=== PATIENT | female | born 1930 | race Caucasian/White ===

== ENCOUNTER 2016-07-06 17:09 | Inpatient (IN) ==
[2016-07-06 17:38] LABS: Basophils # 0.1 K/mcL (0.0-0.2); Basophils % 0.4 %; Eosinophils # 0.3 K/mcL (0.0-0.6); Eosinophils % 2.1 %; Hemoglobin 10.1 g/dL (11.5-15.4); Immature Granulocytes % 0.4 % (0-4); Lymphocytes # 2.6 K/mcL (0.6-4.6); Lymphocytes % 18.9 %; Mean Corpuscular HGB Conc 30.6 g/dL (31.6-35.5); Mean Corpuscular Hemoglobin 26.6 pg (28.0-33.3); Mean Corpuscular Volume 87.1 fL (83.0-100.0); Mean Platelet Volume 11.6 fL (9.4-12.4); Monocytes # 1.2 K/mcL (0.0-1.3); Monocytes % 8.3 %; Neutrophils # 9.7 K/mcL (1.6-8.9); Platelet Count 384 K/mcL (140-400); Red Blood Count 3.79 M/mcL (3.82-4.97); Red Cell Distribution Width 15.2 % (11.5-14.5); Segmented Neutrophils % 69.9 %
--- NOTE | 2016-07-06 17:42 | Emergency Department Note ---
Disposition Clinical Impression: Congestive heart failure Qualifiers: Congestive heart failure type: unspecified congestive heart failure type Congestive heart failure chronicity: unspecified congestive heart failure chronicity Qualified Code(s): I50.9 - Heart failure, unspecified Disposition: Admitted As Inpatient Condition: Fair SOB HPI - General Chief Complaint: ED Shortness of Breath/Dyspnea Stated Complaint: TERESA Time Seen by Provider: 07/06/16 17:14 Source: patient Limitations: no limitations Nursing Notes Reviewed: Yes Vital Signs Reviewed: Yes - History of Present Illness Patient is an 86-year-old female with a history of congestive heart failure, heart disease, and pulmonology issues Pt Subjective Complaint: shortness of breath Onset (ago): day(s) - Related Data Home Medications Medication Instructions Recorded Confirmed Amlodipine [Norvasc] 10 mg PO QAM 08/11/15 04/10/16 B2/Vits A,C,E/Lut/Zeaxanth/Min 1 each PO HS 08/11/15 04/10/16 [Icaps Tablet] Cholecalciferol (Vitamin D3) 5,000 unit PO HS 08/11/15 04/10/16 [Vitamin D3] ClonazePAM [Klonopin] 0.5 mg PO HS 08/11/15 04/10/16 Docusate [Colace] 100 mg PO HS 08/11/15 04/10/16 Furosemide [Lasix] 80 mg PO QAM 08/11/15 04/10/16 Insulin NPH Hum/Reg Insulin Hm 35 unit SQ BID 08/11/15 04/10/16 [Novolin 70-30 100 Unit/ml Vial] Losartan [Cozaar] 50 mg PO HS 08/11/15 04/10/16 [place]-3/Dha/Epa/Fish Oil [[place] 3 2 cap PO QAM 08/11/15 04/10/16 500 Softgel] Omeprazole [PriLOSEC] 40 mg PO QAM 08/11/15 04/10/16 Potassium Chloride [K-Tab ER] 20 meq PO BID 08/11/15 04/10/16 Venlafaxine [Effexor] 37.5 mg PO BID 08/11/15 04/10/16 Albuterol Neb [Proventil Neb] 2.5 mg IH Q6H PRN 03/29/16 04/10/16 Albuterol Sulfate [Proair Hfa] 2 puff IH Q4H PRN 03/29/16 04/10/16 Denosumab [Prolia (For Outpatient 60 mg SQ [id number] 03/29/16 04/10/16 Infusion)] Metoprolol [Lopressor] 75 mg PO BID 03/29/16 04/10/16 Rivaroxaban [Xarelto] 15 mg PO QAM 03/29/16 04/10/16 Doxycycline 100 mg PO BID 04/10/16 04/10/16 Allergies Allergy/AdvReac Type Severity Reaction Status Date / Time aminophylline Allergy Anaphylaxis Verified 04/10/16 14:12 bacitracin Allergy Anaphylaxis Verified 04/10/16 14:12 Calcium Channel Blocking Allergy Anaphylaxis Verified 04/10/16 14:12 Agents-Dih cephalexin Allergy Anaphylaxis Verified 04/10/16 14:12 Cephalosporins Allergy Anaphylaxis Verified 04/10/16 14:12 diltiazem Allergy Anaphylaxis Verified 04/10/16 14:12 Erythromycin Base Allergy Anaphylaxis Verified 04/10/16 14:12 Macrolide Antibiotics Allergy Anaphylaxis Verified 04/10/16 14:12 menthol Allergy Anaphylaxis Verified 04/10/16 14:12 meperidine Allergy Anaphylaxis Verified 04/10/16 14:12 methyl salicylate Allergy Anaphylaxis Verified 04/10/16 14:12 morphine Allergy Anaphylaxis Verified 04/10/16 14:12 nifedipine Allergy Anaphylaxis Verified 04/10/16 14:12 Penicillins Allergy Anaphylaxis Verified 04/10/16 14:12 polymyxin B Allergy Anaphylaxis Verified 04/10/16 14:12 simvastatin Allergy Anaphylaxis Verified 04/10/16 14:12 Shccyqe-Ixr-Zjr Reductase Allergy Anaphylaxis Verified 04/10/16 14:12 Inhibitor [HMG-Coa Reductase Inhibitors] Sulfa (Sulfonamide Allergy Anaphylaxis Verified 04/10/16 14:12 Antibiotics) theophylline Allergy Anaphylaxis Verified 04/10/16 14:12 Iodinated Contrast Media - AdvReac Anaphylaxis Verified 04/10/16 14:12 Oral and [Iodinated Contrast Media - IV Dye] All systems ED: reviewed and negative except as stated. 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 - Social History Smoking Status: Former smoker Smokeless Tobacco Status: No Alcohol use: Reports: none Drug use: Reports: none Physical Exam - General Limitations: no limitations General appearance: alert, in no apparent distress - Head Head exam: atraumatic - Eye Eye exam: Present: normal appearance - ENT ENT exam: normal exam - Neck Neck exam: Present: normal inspection - Chest Chest inspection: Present: normal inspection - Respiratory Respiratory exam: Present: other (crackles right base) - Cardiovascular Cardiovascular exam: Present: regular rate, normal rhythm - Abdominal Exam Abdominal exam: Present: soft, Non-Tender - Expanded Lower Extremity Exam Lower leg exam: Present: swelling Gait: not tested/not observed - Back Exam Back exam: Present: normal inspection - Neurological Exam Neurological exam: Present: alert, oriented X3 - Psychiatric Psychiatric exam: Present: normal affect, normal mood - Skin Skin exam: Present: warm, dry Course Course Narrative: Case was discussed with Dr. Mejia who is agreeable to admitting the patient Vital Signs Temperature 99.4 F 07/06/16 17:13 Pulse Rate 70 07/06/16 17:13 Respiratory Rate 28 07/06/16 17:13 Blood Pressure 132/52 07/06/16 17:13 O2 Sat by Pulse Oximetry 93 L 07/06/16 17:13 Temperature 98.5 F 07/06/16 20:10 Pulse Rate 71 07/06/16 20:10 Respiratory Rate 18 07/06/16 20:10 Blood Pressure 134/84 07/06/16 20:10 O2 Sat by Pulse Oximetry 96 07/06/16 20:10 Oxygen Delivery Oxygen Delivery Nasal Cannula Shortness of Breath/Dyspnea - [facility] Narrative Medical decision making narrative: Differential: Pneumonia versus cardiovascular versus congestive heart failure - Lab Data Lab results reviewed: Yes I reviewed the patient's lab results. Result diagrams: 07/06/16 17:29 07/06/16 17:29 Lab Results 07/06/16 07/06/16 07/06/16 Range/Units 17:29 17:29 17:29 WBC 13.9 H (4.3-11.1) K/mcL RBC 3.79 L (3.82-4.97) M/mcL Hgb 10.1 L (11.5-15.4) g/dL Hct 33.0 L (35.3-44.9) % MCV 87.1 (83.0-100.0) fL MCH 26.6 L (28.0-33.3) pg MCHC 30.6 L (31.6-35.5) g/dL RDW 15.2 H (11.5-14.5) % Plt Count 384 (140-400) K/mcL MPV 11.6 (9.4-12.4) fL Immature Gran % 0.4 (0-4) % Seg Neutrophils % 69.9 % Lymphocytes % 18.9 % Monocytes % 8.3 % Eosinophils % 2.1 % Basophils % 0.4 % Neutrophils # 9.7 H (1.6-8.9) K/mcL Lymphocytes # 2.6 (0.6-4.6) K/mcL Monocytes # 1.2 (0.0-1.3) K/mcL Eosinophils # 0.3 (0.0-0.6) K/mcL Basophils # 0.1 (0.0-0.2) K/mcL PT 25.9 H (9.4-12.1) Seconds INR 2.3 Sodium 141 (136-145) mEq/L Potassium 4.1 (3.5-4.5) mEq/L Chloride 101 (98-109) mEq/L Carbon Dioxide 30 H (19-29) mEq/L BUN 18 (7-20) mg/dL Creatinine 1.12 H (0.57-1.11) mg/dL Est GFR ( Amer) 56 L (> 60) Est GFR (Non-Af Amer) 46 L (> 60) BUN/Creatinine Ratio 16 (6-26) Glucose 143 H (70-99) mg/dL Calculated Osmolality 296 (280-300) Calcium 10.3 (8.6-10.8) mg/dL Total Bilirubin 0.3 (0.2-1.2) mg/dL AST 17 (5-34) Units/L ALT 17 (0-55) Units/L Alkaline Phosphatase 72 (38-126) Units/L Troponin I (0-0.03) ng/mL B-Natriuretic Peptide (0-100) pg/mL Serum Total Protein 6.2 (6.0-8.3) g/dL Albumin 3.2 L (3.5-5.0) g/dL Globulin 3.0 (2.4-3.5) g/dL Albumin/Globulin Ratio 1.1 (1.1-2.2) Urine Color (Yellow) Urine Clarity (Clear) Urine pH (5.0-8.0) pH Units Ur Specific [place] (1.010-1.025) Urine Protein (Neg-Trace) mg/dL Urine Glucose (UA) (Normal) mg/dL Urine Ketones (Negative) mg/dL Urine Blood (Negative) Urine Nitrite (Negative) Urine Bilirubin (Negative) Urine Urobilinogen (Normal) mg/dL Ur Leukocyte Esterase (Negative) Ur Culture Indicated? (NO) 07/06/16 07/06/16 07/06/16 Range/Units 17:29 17:29 19:24 WBC (4.3-11.1) K/mcL RBC (3.82-4.97) M/mcL Hgb (11.5-15.4) g/dL Hct (35.3-44.9) % MCV (83.0-100.0) fL MCH (28.0-33.3) pg MCHC (31.6-35.5) g/dL RDW (11.5-14.5) % Plt Count (140-400) K/mcL MPV (9.4-12.4) fL Immature Gran % (0-4) % Seg Neutrophils % % Lymphocytes % % Monocytes % % Eosinophils % % Basophils % % Neutrophils # (1.6-8.9) K/mcL Lymphocytes # (0.6-4.6) K/mcL Monocytes # (0.0-1.3) K/mcL Eosinophils # (0.0-0.6) K/mcL Basophils # (0.0-0.2) K/mcL PT (9.4-12.1) Seconds INR Sodium (136-145) mEq/L Potassium (3.5-4.5) mEq/L Chloride (98-109) mEq/L Carbon Dioxide (19-29) mEq/L BUN (7-20) mg/dL Creatinine (0.57-1.11) mg/dL Est GFR ( Amer) (> 60) Est GFR (Non-Af Amer) (> 60) BUN/Creatinine Ratio (6-26) Glucose (70-99) mg/dL Calculated Osmolality (280-300) Calcium (8.6-10.8) mg/dL Total Bilirubin (0.2-1.2) mg/dL AST (5-34) Units/L ALT (0-55) Units/L Alkaline Phosphatase (38-126) Units/L Troponin I 0.01 (0-0.03) ng/mL B-Natriuretic Peptide 356 H (0-100) pg/mL Serum Total Protein (6.0-8.3) g/dL Albumin (3.5-5.0) g/dL Globulin (2.4-3.5) g/dL Albumin/Globulin Ratio (1.1-2.2) Urine Color Yellow (Yellow) Urine Clarity Clear (Clear) Urine pH 5.0 (5.0-8.0) pH Units Ur Specific [place] 1.010 (1.010-1.025) Urine Protein Negative (Neg-Trace) mg/dL Urine Glucose (UA) Normal (Normal) mg/dL Urine Ketones Negative (Negative) mg/dL Urine Blood Negative (Negative) Urine Nitrite Negative (Negative) Urine Bilirubin Negative (Negative) Urine Urobilinogen Normal (Normal) mg/dL Ur Leukocyte Esterase Negative (Negative) Ur Culture Indicated? NO (NO) - Radiology Data Radiology results reviewed: Yes I reviewed the patient's radiology results. ITS Impressions Chest X-Ray 07/06/16 17:14 IMPRESSION: Findings suggestive of mild pulmonary edema. Bilateral pleural effusions and associated airspace disease, right greater than left. D/ / Paul Pickett MD / Paul Pickett MD Interpreting Provider: Paul Pickett MD - EKG Data EKG attestation: Yes I reviewed and interpreted this EKG. Rate: Reports: normal Rhythm: Reports: A.Fib
[2016-07-06 17:43] LABS: INR 2.3; Prothrombin Time 25.9 Seconds (9.4-12.1)
[2016-07-06 17:57] LABS: Albumin 3.2 g/dL (3.5-5.0); Albumin/Globulin Ratio 1.1 (1.1-2.2); Bilirubin,Total 0.3 mg/dL (0.2-1.2); Calcium 10.3 mg/dL (8.6-10.8); Potassium 4.1 mEq/L (3.5-4.5); Total Protein 6.2 g/dL (6.0-8.3)
[2016-07-06] MEDS ORDERED: Furosemide 20 MG/2 ML VIAL IVP STA (18:15)
[2016-07-06] MEDS ORDERED: Furosemide 20 MG/2 ML VIAL IVP ONE ×2 (18:36→20:03)
[2016-07-06 19:34] LABS: Bilirubin,Urine Negative (Negative); Blood,Urine Negative (Negative); Clarity,Urine Clear (Clear); Color,Urine Yellow (Yellow); Glucose,Urine (UA) Normal (Normal); Ketones,Urine Negative (Negative); Leukocyte Esterase,Urine Negative (Negative); Nitrite,Urine Negative (Negative); Protein,Urine Negative (Neg-Trace); Urobilinogen,Urine Normal (Normal)
[2016-07-06] MEDS ORDERED: Albuterol 2.5 MG/3 ML NEBULIZER IH PRN (20:03)
[2016-07-06] MEDS ORDERED: Insulin NPH/REG 70/30 100 UNIT/ML (x5UNIT) SQ ONE (21:00)
[2016-07-06] MEDS: Cholecalciferol (D-3) 1,000 UNIT TABLET PO SCH (21:51)
[2016-07-06] MEDS: ClonazePAM 0.5 MG TABLET PO SCH (21:51)
[2016-07-06] MEDS: [UNRECOGNIZED DRUG - OTHER] PO SCH (21:52)
[2016-07-07] MEDS ORDERED: Furosemide 40 MG TABLET PO SCH (09:00)
[2016-07-07] MEDS: *HR* Rivaroxaban 15 MG TABLET PO SCH (10:21)
[2016-07-07] MEDS: Insulin NPH/REG 70/30 100 UNIT/ML (x5UNIT) SQ SCH ×2 (10:22→21:09)
--- NOTE | 2016-07-07 11:22 | Internal Med History&Physical ---
Date of Encounter: 07/07/16 Time of Encounter: 10:50 Assessment and Plan (1) Diastolic heart failure Current visit: No Status: Chronic Suspect she has superimposed acute decompensation with AF with RVR with possible underlying infection also. Will give additional diuretic. I will also give her Lanoxin and reassess in a.m. Qualifiers: Heart failure chronicity: chronic Qualified Code(s): I50.32 - Chronic diastolic (congestive) heart failure (2) Pleural effusion Current visit: Yes Status: Acute Possibly secondary to heart failure. Other causes would include parapneumonic effusion or malignancy. Will treat for heart failure and reassess. (3) CKD (chronic kidney disease) stage 3, GFR 30-59 ml/min Current visit: Yes Status: Chronic Will monitor renal indices. (4) Atrial fibrillation Current visit: No Status: Chronic Will add Lanoxin to slow ventricular response. Qualifiers: Atrial fibrillation type: paroxysmal Qualified Code(s): I48.0 - Paroxysmal atrial fibrillation (5) DM type 2 (diabetes mellitus, type 2) Current visit: No Status: Acute Hemoglobin A1c was 6.4% on 03/29/2016. Will continue home Novolin 70/30 and do Accu-Cheks with SSI. 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 (7) COPD (chronic obstructive pulmonary disease) Current visit: No Status: Chronic Will add Symbicort and Spiriva. She reports she is using albuterol nebs 3 times a day at home Qualifiers: COPD type: unspecified COPD Qualified Code(s): J44.9 - Chronic obstructive pulmonary disease, unspecified (8) Hypertension Current visit: No Status: Chronic Continue Cozaar. Will increase Lopressor and stop Norvasc because of significant edema. Qualifiers: Hypertension type: essential hypertension Qualified Code(s): I10 - Essential (primary) hypertension Internal Medicine - H&P: HPI Chief complaint: Dyspnea Admitted From: Home Plans for Post Hospital Care: Home History of present illness: Ms. Ley is a 86 year old female who came to emergency room or coronation of her home health nurse and physician because she had gradual worsening dyspnea. She states she had not fully recovered from her hospitalization at [facility] April 2016 when she was felt to have pneumonia. She was transferred [facility] for further evaluation for lung nodules. She reports bronchoscopy was done. I do not have the report in hand. She reports a follow-up chest CT was done July 05. She was evaluated in emergency room and felt to have exacerbation of heart failure. She was admitted to [facility] for ongoing care needs. Her respiratory history significant for having smoked from age [age] up to 3 packs per day. She had PFTs approximately 10-15 years and was told she had COPD. She wears oxygen at home. Her cardiovascular history is significant for hypertension and paroxysmal atrial fibrillation. She is uncertain if she has had MN in the past. She thinks she had an exercise stress test approximately 2004 which was negative. She denies DVT or pulmonary embolus. She had an echocardiogram done August 2015 which showed LVEF of 65%. There was left atrial enlargement at 5.2 cm. She was reported to have mildly dilated right atrium without measurement recorded. There were is increased thickness of the interventricular septum and posterior wall with thickness measurement of 1.2 cm each. She was felt to have severe LV diastolic dysfunction. She had aortic sclerosis and calcified mitral valve leaflets with mild MR present. Estimated RVSP was 54 mmHg. Past Med Surg Social Fam HX - Past Medical History Medical history: arthritis, atrial fibrillation, CHF, COPD, CVA Psychiatric history: anxiety - Past Surgical History Surgical History: cataract, hysterectomy, orthopedic, other, other - Social History Smoking Status: Former smoker Smokeless Tobacco Status: No Alcohol use: none Drug use: none - Family History Mother Living Status: Hx Family Cardiac Disorders: Yes Father Living Status: Hx Family Cancer: Yes Brother Hx Family Cardiac Disorders: Yes (CAD, has PPM) Sister Hx Family Cardiac Disorders: Yes (CAD, has PPM) Daughter Living Status: Hx Family Cancer: Yes Internal Medicine - H&P: Meds Amlodipine [Norvasc] 10 mg PO QAM 08/11/15 [History] B2/Vits A,C,E/Lut/Zeaxanth/Min [Icaps Tablet] 1 each PO HS 08/11/15 [History] Cholecalciferol (Vitamin D3) [Vitamin D3] 5,000 unit PO HS 08/11/15 [History] ClonazePAM [Klonopin] 0.5 mg PO HS 08/11/15 [History] Docusate [Colace] 100 mg PO HS 08/11/15 [History] Furosemide [Lasix] 80 mg PO QAM 08/11/15 [History] Insulin NPH Hum/Reg Insulin Hm [Novolin 70-30 100 Unit/ml Vial] 35 unit SQ BID 08/11/15 [History] Losartan [Cozaar] 50 mg PO HS 08/11/15 [History] [place]-3/Dha/Epa/Fish Oil [[place] 3 500 Softgel] 2 cap PO QAM 08/11/15 [History] Omeprazole [PriLOSEC] 40 mg PO QAM 08/11/15 [History] Potassium Chloride [K-Tab ER] 20 meq PO BID 08/11/15 [History] Venlafaxine [Effexor] 37.5 mg PO BID 08/11/15 [History] Albuterol Neb [Proventil Neb] 2.5 mg IH Q6H PRN 03/29/16 [History] Albuterol Sulfate [Proair Hfa] 2 puff IH Q4H PRN 03/29/16 [History] Denosumab [Prolia (For Outpatient Infusion)] 60 mg SQ [id number] 03/29/16 [History ] Metoprolol [Lopressor] 75 mg PO BID 03/29/16 [History] Rivaroxaban [Xarelto] 15 mg PO QAM 03/29/16 [History] Doxycycline 100 mg PO BID 04/10/16 [History] Allergies aminophylline Allergy (Verified 04/10/16 14:12) Anaphylaxis bacitracin Allergy (Verified 04/10/16 14:12) Anaphylaxis Calcium Channel Blocking Agents-Dih Allergy (Verified 04/10/16 14:12) Anaphylaxis cephalexin Allergy (Verified 04/10/16 14:12) Anaphylaxis Cephalosporins Allergy (Verified 04/10/16 14:12) Anaphylaxis diltiazem Allergy (Verified 04/10/16 14:12) Anaphylaxis Erythromycin Base Allergy (Verified 04/10/16 14:12) Anaphylaxis Macrolide Antibiotics Allergy (Verified 04/10/16 14:12) Anaphylaxis menthol Allergy (Verified 04/10/16 14:12) Anaphylaxis meperidine Allergy (Verified 04/10/16 14:12) Anaphylaxis methyl salicylate Allergy (Verified 04/10/16 14:12) Anaphylaxis morphine Allergy (Verified 04/10/16 14:12) Anaphylaxis nifedipine Allergy (Verified 04/10/16 14:12) Anaphylaxis Penicillins Allergy (Verified 04/10/16 14:12) Anaphylaxis polymyxin B Allergy (Verified 04/10/16 14:12) Anaphylaxis simvastatin Allergy (Verified 04/10/16 14:12) Anaphylaxis Geimnmm-Uqi-Lym Reductase Inhibitor [HMG-Coa Reductase Inhibitors] Allergy ( Verified 04/10/16 14:12) Anaphylaxis Sulfa (Sulfonamide Antibiotics) Allergy (Verified 04/10/16 14:12) Anaphylaxis theophylline Allergy (Verified 04/10/16 14:12) Anaphylaxis Iodinated Contrast Media - Oral and [Iodinated Contrast Media - IV Dye] Adverse Reaction (Verified 04/10/16 14:12) Anaphylaxis All Systems PM: A 10-system review of systems was performed and is negative for pertinent findings except as documented above in the HPI. Review of systems: Review of systems from April 2016 H&P were reviewed and revised as below. Gen.: Her weight has been stable at approximately 79 kg since last admission Cardiovascular: As per history of present illness Respiratory: as per history of present illness GI: She denies disorders of her liver gallbladder or exocrine pancreas : She had azotemia on blood work in emergency room with estimated GFR of 56. This is similar to 04/10/2016 labs and is consistent with chronic kidney disease stage III. She has had hysterectomy. Neurologic: She claims she had 2 CVAs in the past most recently approximately 20 years ago. She reports loss of balance as sequelae. 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 She has not had seizures. Endocrine: She was diagnosed with DM 2 approximately 1999. She thinks she has hyperlipidemia but refuses to take medication. She denies thyroid disease Hematology/oncology: She has had multiple lumpectomies from her breasts with benign findings. She denies internal malignancies or anemia. 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 - Constitutional Vitals: Temp Pulse Resp BP Pulse Ox 97.6 F 134 20 136/69 99 07/07/16 10:33 07/07/16 10:33 07/07/16 10:33 07/07/16 10:33 07/07/16 10:33 Exam: Gen.: She is well-developed well-nourished female who appears in minimal respiratory distress at present time. HEENT: Head is atraumatic and normocephalic. Eyes: EOMI. 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 Mouth: Mucosa is moist. Neck: Supple and nontender. There is no thyromegaly or adenopathy noted. Heart: Irregular irregular with rate approximately 130/m. Lungs: No wheezes or crackles are heard. She has diminished breath sounds diffusely. There is egophony in the right base. There is right pleural effusion to percussion in the right base area. Abdomen: Soft and nontender. No masses or guarding are noted. Extremities: There is no cyanosis or clubbing noted. She has 2-3+ edema of the lower legs and dorsum of the feet bilaterally. Dorsalis pedis and posterior tibial pulses are not palpable bilaterally. She has DJD changes of her hands. Neurologic: Mental status: She is talkative and a good historian. Cranial nerves: Smile is symmetric. Forehead wrinkles bilaterally. Tongue protrudes midline. EOMI. Motor: There is no pronator drift. Cerebellar: Finger to nose intact bilaterally. Skin: Warm and dry Internal Med - H&P Results - Labs CBC & Chem 7: 07/06/16 17:29 07/06/16 17:29
[2016-07-07] MEDS ORDERED: *HR* Digoxin 0.5 MG/2 ML AMPUL IVP ONE (11:42)
[2016-07-07] MEDS ORDERED: Albuterol 2.5 MG/3 ML NEBULIZER IH PRN (11:47)
[2016-07-07] MEDS: Budesonide/Formoterol 160/4.5 MDI IH SCH ×2 (12:37→21:59)
[2016-07-07] MEDS: Furosemide 40 MG/4 ML VIAL IVP SCH ×2 (15:27→20:40)
--- NOTE | 2016-07-07 16:35 | Electrocardiograph Report ---
[facility] Test Date: 2016-07-06 Pat Name: Chhaya Ley Department: [id number] Room: [facility] Gender: F [employer] Sorting [employer] Feeder: Cl : [id number] Requested By: Gennaro Clark Order Number: [id number] Reading MD: Gus Johnston DO Measurements Intervals [place] Rate: 68 P: IA: 0 QRS: 40 QRSD: 85 T: 34 QT: 409 QTc: 426 Interpretive Statements Atrial fibrillation Nonspecific ST-T changes Electronically Signed On 07-07-16 16:34:53 EST by Gus Johnston DO
[2016-07-07] MEDS: Cholecalciferol (D-3) 1,000 UNIT TABLET PO SCH (20:38)
[2016-07-07] MEDS: ClonazePAM 0.5 MG TABLET PO SCH (20:39)
[2016-07-07] MEDS: [UNRECOGNIZED DRUG - OTHER] PO SCH (20:44)
[2016-07-08 06:13] LABS: Basophils # 0.1 K/mcL (0.0-0.2); Basophils % 0.4 %; Eosinophils # 0.3 K/mcL (0.0-0.6); Eosinophils % 2.3 %; Hematocrit 36.2 % (35.3-44.9); Hemoglobin 10.9 g/dL (11.5-15.4); Immature Granulocytes % 0.3 % (0-4); Lymphocytes # 2.6 K/mcL (0.6-4.6); Mean Corpuscular HGB Conc 30.1 g/dL (31.6-35.5); Mean Corpuscular Hemoglobin 26.2 pg (28.0-33.3); Mean Platelet Volume 11.5 fL (9.4-12.4); Monocytes # 1.1 K/mcL (0.0-1.3); Monocytes % 8.2 %; Neutrophils # 9.6 K/mcL (1.6-8.9); Platelet Count 390 K/mcL (140-400); Red Blood Count 4.16 M/mcL (3.82-4.97); Segmented Neutrophils % 69.8 %
[2016-07-08 06:33] LABS: Calcium 10.7 mg/dL (8.6-10.8); Magnesium 1.7 mg/dL (1.6-2.6); Potassium 3.5 mEq/L (3.5-4.5)
[2016-07-08 06:41] LABS: Digoxin 0.9 ng/mL (0.8-2.0)
[2016-07-08] MEDS: Furosemide 40 MG/4 ML VIAL IVP SCH ×2 (08:24→20:41)
[2016-07-08] MEDS: *HR* Rivaroxaban 15 MG TABLET PO SCH (08:24)
[2016-07-08] MEDS: Insulin NPH/REG 70/30 100 UNIT/ML (x5UNIT) SQ SCH ×2 (08:44→17:06)
[2016-07-08] MEDS: Budesonide/Formoterol 160/4.5 MDI IH SCH ×2 (09:02→21:23)
[2016-07-08] MEDS: Tiotropium 18 MCG inhalation IH SCH (09:02)
[2016-07-08 13:09] LABS: Hemoglobin A1C 5.7 %
--- NOTE | 2016-07-08 14:53 | Internal Med Progress Note ---
Date of Encounter: 07/08/16 Time of Encounter: 14:35 - Assessment and plan (1) Diastolic heart failure Current Visit: No Status: Chronic Assessment and plan: July 08. Continue Lasix, Cozaar, Lanoxin, and Lopressor. Qualifiers: Heart failure chronicity: chronic Qualified Code(s): I50.32 - Chronic diastolic (congestive) heart failure (2) Pleural effusion Current Visit: Yes Status: Acute Assessment and plan: July 08. Continue treatment as above (3) CKD (chronic kidney disease) stage 3, GFR 30-59 ml/min Current Visit: Yes Status: Chronic Assessment and plan: July 08. Stable (4) Atrial fibrillation Current Visit: No Status: Chronic Assessment and plan: July 08. We will continue with Lopressor and Lanoxin. We will add low-dose verapamil to further slow ventricular rate and improve blood pressure. Qualifiers: Atrial fibrillation type: paroxysmal Qualified Code(s): I48.0 - Paroxysmal atrial fibrillation (5) DM type 2 (diabetes mellitus, type 2) Current Visit: No Status: Acute Assessment and plan: July 08. Hemoglobin A1c was excellent at 5.7% today. 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 Continue to monitor (7) COPD (chronic obstructive pulmonary disease) Current Visit: No Status: Chronic Assessment and plan: July 08. Continue Symbicort, Spiriva, and when necessary albuterol nebs Qualifiers: COPD type: unspecified COPD Qualified Code(s): J44.9 - Chronic obstructive pulmonary disease, unspecified (8) Hypertension Current Visit: No Status: Chronic Assessment and plan: July 08. Continue Cozaar and Lopressor. Will remain off Norvasc. We will start verapamil for blood pressure and to slow ventricular response to AF. Qualifiers: Hypertension type: essential hypertension Qualified Code(s): I10 - Essential (primary) hypertension - Subjective Interval history: July 08. She has no new complaints. She states she has less dyspnea and her feet are less edematous. - Constitutional Vitals: Temp Pulse Resp BP Pulse Ox 97.9 F 93 18 150/60 97 07/08/16 10:39 07/08/16 10:39 07/08/16 10:39 07/08/16 10:39 07/08/16 10:39 Exam: Her heart is irregularly irregular with rapid ventricular response rate approximately 120/m. Lungs show no wheezes or crackles. Extremities showed decreased edema. I reviewed her medications and lab results. Internal Medicine: Result - Labs CBC & Chem 7: 07/08/16 06:09 07/08/16 06:09 Labs: Short CBC 07/08/16 Range/Units 06:09 WBC 13.7 H (4.3-11.1) K/mcL Hgb 10.9 L (11.5-15.4) g/dL Hct 36.2 (35.3-44.9) % Plt Count 390 (140-400) K/mcL Neutrophils # 9.6 H (1.6-8.9) K/mcL BMP 07/08/16 06:09 Sodium 143 Potassium 3.5 Chloride 98 Carbon Dioxide 33 H BUN 18 Creatinine 1.08 Glucose 113 H Calcium 10.7 - ABG Interpretation ABG results: PT/INR, D-dimer PT 25.9 Seconds (9.4-12.1) H 07/06/16 17:29 Consult Discharge Plan - Plan Referrals: NO,PCP [Primary Care Provider] - 1 week
[2016-07-08] MEDS: *HR* Digoxin 0.125 MG TABLET PO SCH (17:06)
[2016-07-08] MEDS: Verapamil ER (24 HR) 240 MG TABLET.ER PO SCH (17:25)
[2016-07-08] MEDS: Cholecalciferol (D-3) 1,000 UNIT TABLET PO SCH (20:39)
[2016-07-08] MEDS: [UNRECOGNIZED DRUG - OTHER] PO SCH (20:41)
[2016-07-08] MEDS: ClonazePAM 0.5 MG TABLET PO SCH (20:41)
[2016-07-09 06:55] LABS: BUN/Creatinine Ratio 24 (6-26); Blood Urea Nitrogen 25 mg/dL (7-20); Calcium 10.3 mg/dL (8.6-10.8); Carbon Dioxide 32 mEq/L (19-29); Chloride 100 mEq/L (98-109); Glucose 71 mg/dL (70-99); Osmolality,Calculated 301 (280-300); Potassium 3.7 mEq/L (3.5-4.5); Sodium 144 mEq/L (136-145); eGFR For African Americans > 60 (> 60); eGFR For Non-African Americans 50 (> 60)
[2016-07-09] MEDS: Verapamil ER (24 HR) 240 MG TABLET.ER PO SCH (08:04)
[2016-07-09] MEDS: *HR* Rivaroxaban 15 MG TABLET PO SCH (08:05)
[2016-07-09] MEDS: *HR* Digoxin 0.125 MG TABLET PO SCH (08:05)
[2016-07-09] MEDS: Furosemide 40 MG/4 ML VIAL IVP SCH ×3 (08:06→18:22)
[2016-07-09] MEDS: Tiotropium 18 MCG inhalation IH SCH (08:58)
[2016-07-09] MEDS: Budesonide/Formoterol 160/4.5 MDI IH SCH ×2 (08:59→21:36)
--- NOTE | 2016-07-09 09:44 | Internal Med Progress Note ---
Date of Encounter: 07/09/16 Time of Encounter: 09:35 - Assessment and plan (1) Diastolic heart failure Current Visit: No Status: Chronic Assessment and plan: July 08. Continue Lasix, Cozaar, Lanoxin, and Lopressor. Qualifiers: Heart failure chronicity: chronic Qualified Code(s): I50.32 - Chronic diastolic (congestive) heart failure (2) Pleural effusion Current Visit: Yes Status: Acute Assessment and plan: July 08. Continue treatment as above (3) CKD (chronic kidney disease) stage 3, GFR 30-59 ml/min Current Visit: Yes Status: Chronic Assessment and plan: July 08. Stable July 09. Her estimated GFR has risen to 50. (4) Atrial fibrillation Current Visit: No Status: Chronic Assessment and plan: July 08. We will continue with Lopressor and Lanoxin. We will add low-dose verapamil to further slow ventricular rate and improve blood pressure. July 09. Continue Xarelto, Lopressor, Lanoxin, and verapamil Qualifiers: Atrial fibrillation type: paroxysmal Qualified Code(s): I48.0 - Paroxysmal atrial fibrillation (5) DM type 2 (diabetes mellitus, type 2) Current Visit: No Status: Acute Assessment and plan: July 08. Hemoglobin A1c was excellent at 5.7% today. Continue present regimen Qualifiers: Diabetes mellitus complication status: with kidney complications Diabetes mellitus complication detail: with chronic kidney disease Diabetes mellitus intermediate manager insulin use: with mcfp use Chronic kidney disease stage: stage 3 (moderate) Qualified Code(s): E11.22 - Type 2 diabetes mellitus with diabetic chronic kidney disease; N18.3 - Chronic kidney disease, stage 3 ( moderate); Z79.4 - supervisor intermediates (current) use of insulin (6) Lung nodule Current Visit: No Status: Acute Assessment and plan: July 08. Continue to monitor (7) COPD (chronic obstructive pulmonary disease) Current Visit: No Status: Chronic Assessment and plan: July 08. Continue Symbicort, Spiriva, and when necessary albuterol nebs Qualifiers: COPD type: unspecified COPD Qualified Code(s): J44.9 - Chronic obstructive pulmonary disease, unspecified (8) Hypertension Current Visit: No Status: Chronic Assessment and plan: July 08. Continue Cozaar and Lopressor. Will remain off Norvasc. We will start verapamil for blood pressure and to slow ventricular response to AF. July 09. Continue Cozaar and Lopressor and verapamil Qualifiers: Hypertension type: essential hypertension Qualified Code(s): I10 - Essential (primary) hypertension - Subjective Interval history: July 08. She has no new complaints. She states she has less dyspnea and her feet are less edematous. July 09. She has no new complaints and feels better. - Constitutional Vitals: Temp Pulse Resp BP Pulse Ox 98.2 F 104 15 152/74 99 07/09/16 06:31 07/09/16 06:31 07/09/16 09:03 07/09/16 06:31 07/09/16 09:03 Exam: She is sitting comfortably in a chair and appears in no acute distress. Her heart is irregularly irregular with rate approximately 112/m. Lungs are clear. Extremities show trace edema at most bilaterally. I reviewed her medications and lab results. Internal Medicine: Result - Labs CBC & Chem 7: 07/08/16 06:09 07/09/16 05:53 Labs: BMP 07/09/16 05:53 Sodium 144 Potassium 3.7 Chloride 100 Carbon Dioxide 32 H BUN 25 H Creatinine 1.04 Glucose 71 Calcium 10.3 - ABG Interpretation ABG results: PT/INR, D-dimer PT 25.9 Seconds (9.4-12.1) H 07/06/16 17:29 Consult Discharge Plan - Plan Referrals: NO,PCP [Primary Care Provider] - 1 week
[2016-07-09] MEDS: Insulin NPH/REG 70/30 100 UNIT/ML (x5UNIT) SQ SCH ×2 (11:59→18:22)
[2016-07-09] MEDS ORDERED: *HR* Digoxin 0.125 MG TABLET PO STA (20:34)
[2016-07-09] MEDS: Cholecalciferol (D-3) 1,000 UNIT TABLET PO SCH (20:51)
[2016-07-09] MEDS: ClonazePAM 0.5 MG TABLET PO SCH (20:51)
[2016-07-09] MEDS: [UNRECOGNIZED DRUG - OTHER] PO SCH (20:53)
[2016-07-09] MEDS ORDERED: Verapamil ER (24 HR) 240 MG TABLET.ER PO SCH (22:30)
[2016-07-10 06:48] VITALS: BP 153/76
[2016-07-10] MEDS: Tiotropium 18 MCG inhalation IH SCH (08:17)
--- NOTE | 2016-07-10 08:58 | Discharge Summary ---
Date of Encounter: 07/10/16 Time of Encounter: 08:40 - Discharge Diagnosis (1) Diastolic heart failure Priority: Primary Status: Chronic Qualifiers: Heart failure chronicity: chronic Qualified Code(s): I50.32 - Chronic diastolic (congestive) heart failure (2) Pleural effusion Priority: Secondary Status: Acute (3) CKD (chronic kidney disease) stage 3, GFR 30-59 ml/min Priority: Secondary Status: Chronic (4) Atrial fibrillation Priority: Secondary Status: Chronic Qualifiers: Atrial fibrillation type: paroxysmal Qualified Code(s): I48.0 - Paroxysmal atrial fibrillation (5) DM type 2 (diabetes mellitus, type 2) Priority: Secondary Status: Acute Qualifiers: Diabetes mellitus complication status: with kidney complications Diabetes mellitus complication detail: with chronic kidney disease Diabetes mellitus termination clerk insulin use: with termination clerk use Chronic kidney disease stage: stage 3 (moderate) Qualified Code(s): E11.22 - Type 2 diabetes mellitus with diabetic chronic kidney disease; N18.3 - Chronic kidney disease, stage 3 ( moderate); Z79.4 - assisted (current) use of insulin (6) Lung nodule Priority: Secondary Status: Acute (7) COPD (chronic obstructive pulmonary disease) Priority: Secondary Status: Chronic Qualifiers: COPD type: unspecified COPD Qualified Code(s): J44.9 - Chronic obstructive pulmonary disease, unspecified (8) Hypertension Priority: Secondary Status: Chronic Qualifiers: Hypertension type: essential hypertension Qualified Code(s): I10 - Essential (primary) hypertension - Discharge Medications Prescriptions: Budesonide/Formoterol 160/4.5 [Symbicort 160/4.5] 2 puff IH BIDR #1 inhaler Digoxin [Lanoxin] 0.125 mg PO DAILY #30 tablet Metoprolol [Lopressor] 100 mg PO BID #120 tablet Tiotropium [Spiriva] 18 mcg IH DAILY@0700 #30 inh Verapamil ER (24 HR) [Calan SR] 240 mg PO DAILY #30 tablet.er Home Medications: B2/Vits A,C,E/Lut/Zeaxanth/Min [Icaps Tablet] 1 each PO HS 08/11/15 [History] Cholecalciferol (Vitamin D3) [Vitamin D3] 5,000 unit PO HS 08/11/15 [History] ClonazePAM [Klonopin] 0.5 mg PO HS 08/11/15 [History] Docusate [Colace] 100 mg PO HS 08/11/15 [History] Furosemide [Lasix] 80 mg PO QAM 08/11/15 [History] Insulin NPH Hum/Reg Insulin Hm [Novolin 70-30 100 Unit/ml Vial] 35 unit SQ BID 08/11/15 [History] Losartan [Cozaar] 50 mg PO HS 08/11/15 [History] [place]-3/Dha/Epa/Fish Oil [[place] 3 500 Softgel] 2 cap PO QAM 08/11/15 [History] Omeprazole [PriLOSEC] 40 mg PO QAM 08/11/15 [History] Potassium Chloride [K-Tab ER] 20 meq PO BID 08/11/15 [History] Venlafaxine [Effexor] 37.5 mg PO BID 08/11/15 [History] Albuterol Neb [Proventil Neb] 2.5 mg IH Q6H PRN 03/29/16 [History] Albuterol Sulfate [Proair Hfa] 2 puff IH Q4H PRN 03/29/16 [History] Denosumab [Prolia (For Outpatient Infusion)] 60 mg SQ [id number] 03/29/16 [History ] Rivaroxaban [Xarelto] 15 mg PO QAM 03/29/16 [History] Budesonide/Formoterol 160/4.5 [Symbicort 160/4.5] 2 puff IH BIDR #1 inhaler 03/18 [Rx] Digoxin [Lanoxin] 0.125 mg PO DAILY #30 tablet 07/10/16 [Rx] Metoprolol [Lopressor] 100 mg PO BID #120 tablet 07/10/16 [Rx] Tiotropium [Spiriva] 18 mcg IH DAILY@0700 #30 inh 07/10/16 [Rx] Verapamil ER (24 HR) [Calan SR] 240 mg PO DAILY #30 tablet.er 07/10/16 [Rx] Allergies/Adverse Reactions: Allergies aminophylline Allergy (Verified 04/10/16 14:12) Anaphylaxis bacitracin Allergy (Verified 04/10/16 14:12) Anaphylaxis Calcium Channel Blocking Agents-Dih Allergy (Verified 04/10/16 14:12) Anaphylaxis cephalexin Allergy (Verified 04/10/16 14:12) Anaphylaxis Cephalosporins Allergy (Verified 04/10/16 14:12) Anaphylaxis diltiazem Allergy (Verified 04/10/16 14:12) Anaphylaxis Erythromycin Base Allergy (Verified 04/10/16 14:12) Anaphylaxis Macrolide Antibiotics Allergy (Verified 04/10/16 14:12) Anaphylaxis menthol Allergy (Verified 04/10/16 14:12) Anaphylaxis meperidine Allergy (Verified 04/10/16 14:12) Anaphylaxis methyl salicylate Allergy (Verified 04/10/16 14:12) Anaphylaxis morphine Allergy (Verified 04/10/16 14:12) Anaphylaxis nifedipine Allergy (Verified 04/10/16 14:12) Anaphylaxis Penicillins Allergy (Verified 04/10/16 14:12) Anaphylaxis polymyxin B Allergy (Verified 04/10/16 14:12) Anaphylaxis simvastatin Allergy (Verified 04/10/16 14:12) Anaphylaxis Meaxkly-Def-Bjs Reductase Inhibitor [HMG-Coa Reductase Inhibitors] Allergy ( Verified 04/10/16 14:12) Anaphylaxis Sulfa (Sulfonamide Antibiotics) Allergy (Verified 04/10/16 14:12) Anaphylaxis theophylline Allergy (Verified 04/10/16 14:12) Anaphylaxis Iodinated Contrast Media - Oral and [Iodinated Contrast Media - IV Dye] Adverse Reaction (Verified 04/10/16 14:12) Anaphylaxis Date of admission: 07/07/16 12:40 Primary care physician: Jason Ignacio DO - Patient Status Disposition: Home, Self-Care Condition: Fair Overall status at discharge: patient is progressing back to baseline - Discharge Instructions Follow Up With: Jason Ignacio DO [Partnered Physician] - 1 week - Diet and Activity Activity: resume usual activities as tolerated, wear oxygen at all times Diet: advance to your usual diet Hospital course: Ms. Ley is a 86 year old female who came to emergency room on recommendation of her home health nurse and physician because she had gradual worsening dyspnea. She states she had not fully recovered from her hospitalization at [facility] April 2016 when she was felt to have pneumonia. She was transferred [facility] for further evaluation for lung nodules. She reports bronchoscopy was done. I do not have the report in hand. She reports a follow- up chest CT was done July 05. She was evaluated in emergency room and felt to have exacerbation of heart failure. She was admitted to [facility] for ongoing care needs. Initial orders were written by the emergency room physician. I saw her on July 07 and performed history and physical. Her Norvasc was discontinued because of the significant peripheral edema. She was started on Lanoxin. Her other home medicines were generally continued. Metoprolol dose was increased 100 mg twice a day. She had significant improvement in her edema and dyspnea. Dr. Ignacio can order follow-up chest x-ray as an outpatient to see if the right pleural effusion has responded to treatment for heart failure. She had frequent episodes of rapid ventricular response to atrial fibrillation. She was maintained on Lanoxin and higher dose metoprolol. She was started on verapamil in place of Norvasc. Her ventricular rate was 90-110 on the morning of discharge. She was started on Spiriva and Symbicort for maintenance medications for her COPD. These will be continued at discharge. She will continue to use albuterol as needed also. On July 10 I felt she was stable for discharge home. Her dyspnea had significantly improved. Follow with Dr. Ignacio within 1 week. - Time Spent with Patient Total time spent providing and/or coordinating discharge services: - Constitutional Vitals: Temp Pulse Resp BP Pulse Ox 98.5 F 70 20 153/76 87 L 07/10/16 06:46 07/10/16 06:46 07/10/16 08:22 07/10/16 06:46 07/10/16 08:22
[2016-07-10] MEDS: *HR* Rivaroxaban 15 MG TABLET PO SCH (09:00)
[2016-07-10] MEDS: Furosemide 40 MG/4 ML VIAL IVP SCH (09:03)
[2016-07-10] MEDS: Insulin NPH/REG 70/30 100 UNIT/ML (x5UNIT) SQ SCH (09:18)
[2016-07-10] MEDS: Budesonide/Formoterol 160/4.5 MDI IH SCH (09:21)
[2016-07-10] MEDS ORDERED: *HR* Digoxin 0.25 MG TABLET PO ONE (11:45)
== END 2016-07-10 13:50 | disposition home or self-care (01) | DRG 291 ==
LOC: INPPIK 17:09 → EMEROOPIK 17:09 → INPPIK 19:59
PROVIDERS: ADMIT Internal Medicine; ATTEND Internal Medicine